=== PATIENT | female | born 1960 | race Caucasian/White ===

== ENCOUNTER → 2021-12-16 | Outpatient (CLI) | payer OTHER ==
[~2021-12-16] VITALS: Ht 157.5 cm; Wt 56.8 kg
[~2021-12-16] MED LIST: LIDOCAINE 1% INJ 20 ML VIAL INJ ONE
--- NOTE | 2021-12-16 14:30 | Diagnostic Imaging Report ---
INDICATION: Left breast mass. Patient presents for ultrasound-guided core biopsy. Patient was brought to the sonographic suite and placed on table in the supine position. Ultrasound imaging of the left breast was performed to evaluate appropriate entry site. Left breast was then prepped and draped in the usual sterile fashion. A small amount of 1% lidocaine was utilized for local anesthesia. A total of three core biopsies were obtained of the solid mass at the 3 o'clock location in the left breast utilizing a 14-gauge Achieve needle. A marker clip was then deployed. Hemostasis was obtained using manual compression. Patient tolerated the procedure well and was sent for a post-procedure mammogram in satisfactory condition. IMPRESSION: Successful ultrasound-guided core biopsy of the solid mass at the 3 o'clock location in the left breast. Pathology results are currently pending. Dictated by: Dictated on workstation # [id number]
--- NOTE | 2021-12-17 08:30 | Diagnostic Imaging Report ---
INDICATION: Left breast mass, status post ultrasound-guided biopsy. Unilateral left 2-D CC and MLO mammography was performed after patient underwent ultrasound-guided biopsy. Mammographic images demonstrate a marker clip in the upper outer left breast within known mass. There are numerous surrounding microcalcifications present. IMPRESSION: Marker clip placement, status post ultrasound-guided core biopsy. Dictated by: Dictated on workstation # [id number]
== END ==
LOC: RAD 13:00
PROVIDERS: ATTEND Physician Assistant
DX: N63.23 Unspecified lump in the left breast, lower outer quadrant (principal)
CPT/HCPCS: 19083; 77065; A4648; G0279

== ENCOUNTER → 2022-04-07 | Outpatient (CLI) | payer MEDICAID ==
--- NOTE | 2022-04-07 14:31 | Diagnostic Imaging Report ---
INDICATION: Left breast cancer. This study is performed for followup. COMPARISON: Correlation is made with an outside left breast ultrasound from 12/09/2021. FINDINGS: Sonographic interrogation in the upper outer left breast was performed. The irregular hypoechoic mass at the 2:30 to 3 o'clock location in left breast 3 cm from the nipple is again noted. This was previously biopsied and shown to represent a breast cancer. This has decreased in size since the prior exam, now measuring 1.4 x 0.6 x 1.0 cm compared with 1.6 x 1.3 x 1.8 cm. No new mass is detected. IMPRESSION: Decrease in size of the known left breast malignancy at the 2:30 to 3 o'clock location of the left breast when compared with the exam from 12/09/2021. Dictated by: Dictated on workstation # [id number]
== END ==
LOC: RAD 13:38
PROVIDERS: ATTEND Internal Medicine Hematology & Oncology
DX: C50.412 Malignant neoplasm of upper-outer quadrant of left female breast (principal)

== ENCOUNTER → 2022-09-16 | Outpatient (CLI) | payer MEDICAID | LOC: CARD 08:34 | PROVIDERS: ATTEND Nurse Practitioner Adult Health | DX: C50.412 Malignant neoplasm of upper-outer quadrant of left female breast (principal); I34.0 Nonrheumatic mitral (valve) insufficiency | CPT/HCPCS: 93306 ==

== ENCOUNTER → 2022-11-11 | Outpatient (CLI) | payer MEDICAID | LOC: CARD 13:15 | PROVIDERS: ATTEND Internal Medicine Hematology & Oncology | DX: I34.0 Nonrheumatic mitral (valve) insufficiency (principal); C50.412 Malignant neoplasm of upper-outer quadrant of left female breast | CPT/HCPCS: 93306 ==

== ENCOUNTER → 2023-02-16 | Outpatient (CLI) | payer MEDICAID | LOC: CARD 07:58 | PROVIDERS: ATTEND Internal Medicine Hematology & Oncology | DX: I51.7 Cardiomegaly (principal); I34.0 Nonrheumatic mitral (valve) insufficiency; C50.412 Malignant neoplasm of upper-outer quadrant of left female breast | CPT/HCPCS: 93306 ==